=== PATIENT | female | born 1995 | race Caucasian/White ===

== ENCOUNTER 2021-09-23 14:20 | Inpatient (IN) | payer OTHER ==
[2021-09-23] MEDS ORDERED: PROMETHAZINE HCL 25 MG/1 ML VIAL IVPUSH ONE (16:18)
[2021-09-23] MEDS ORDERED: BUTORPHANOL TARTRATE 2 MG/ML VIAL IVPB ONE (16:18)
[2021-09-23] MEDS ORDERED: SODIUM PHOSPHATE/NA BIPHOS 133 ML ENEMA PR ONE (16:25)
[2021-09-23 16:26] VITALS: BMI 25.6
[2021-09-23] MEDS ORDERED: DINOPROSTONE 10 MG VAGINAL SUPPOSITORY VG ONE (16:26)
[2021-09-23] MEDS ORDERED: DEXTROSE 5%-LACTATED RINGERS 1,000 ML IV SCH (16:30)
[2021-09-23 17:17] LABS: BASO % 0.2 % (0-2.0); EOS % 0.1 % (0-4.5); HEMATOCRIT 37.5 % (32.4-45.2); HEMOGLOBIN 12.5 GM/dL (10.7-15.3); LYMPH % 14.4 % (8-40); MCH 30.9 pg (25.7-33.7); MCHC 33.4 g/dl (32.0-36.0); MEAN CELL VOLUME 92.4 fl (80-96); MEAN PLT VOLUME 11.3 fl (7.5-11.1); MONO % 6.3 % (3.8-10.2); PLATELET COUNT 133 10^3/uL (134-434); RBC 4.06 M/mm3 (3.60-5.2); RDW 15.7 % (11.6-15.6); WHITE BLOOD COUNT 12.3 K/mm3 (4.0-10.0)
[2021-09-23 17:21] LABS: INR 0.95 (0.83-1.09); PROTHROMBIN TIME (PATIENT) 10.9 SEC (9.7-13.0)
[2021-09-23 17:24] LABS: ACTIVATED PTT 25.9 SECONDS (25.2-36.5)
[2021-09-23 17:32] LABS: CALCIUM 8.9 mg/dL (8.5-10.1)
[2021-09-23 17:33] LABS: BLOOD UREA NITROGEN 5.8 mg/dL (7-18)
[2021-09-23 17:36] LABS: CREATININE 0.6 mg/dL (0.55-1.3)
[2021-09-23] MEDS ORDERED: PROMETHAZINE HCL 25 MG/1 ML VIAL ONE (19:18)
[2021-09-23] MEDS ORDERED: BUTORPHANOL TARTRATE 2 MG/ML VIAL ONE (19:18)
[2021-09-23] MEDS ORDERED: OXYTOCIN 20 UNITS in 0.9% NS 20 UNIT/1,000 ML INFUS.BAG IV ONE (20:57)
[2021-09-23] MEDS ORDERED: LIDOCAINE HCL 1% PRESERVATIVE FREE - 30ML VIAL ONE (20:57)
[2021-09-23] MEDS ORDERED: oxyCODONE HCL 5 MG TABLET ONE (22:34)
[2021-09-23] MEDS ORDERED: ACETAMINOPHEN 325 MG TABLET (FP) ONE (22:34)
[2021-09-23] MEDS ORDERED: METHYLERGONOVINE MALEATE 0.2 MG/1 ML AMP IM PRN (22:35)
[2021-09-23] MEDS ORDERED: WITCH HAZEL 50% (TUCKS) 40 PAD/JAR PAD TP PRN (22:35)
[2021-09-23] MEDS ORDERED: oxyCODONE HCL 5 MG TABLET PO PRN (22:35)
[2021-09-23] MEDS ORDERED: ACETAMINOPHEN 325 MG TABLET (FP) PO PRN (22:35)
[2021-09-23] MEDS ORDERED: BISACODYL 10 MG SUPP.RECT RC PRN (22:35)
[2021-09-23] MEDS ORDERED: IBUPROFEN 600 MG TABLET (FP) PO PRN (22:35)
[2021-09-23] MEDS ORDERED: BENZOCAINE 20% 57 GM BOTTLE TP PRN (22:35)
[2021-09-23] MEDS ORDERED: BENZOCAINE 28 GM HEMORRHOIDAL OINTMENT TP PRN (22:35)
[2021-09-23] MEDS ORDERED: OXYTOCIN 20 UNITS in 0.9% NS 20 UNIT/1,000 ML INFUS.BAG IV SCH (22:45)
[2021-09-24 07:43] LABS: BASO % 0.3 % (0-2.0); EOS % 0.1 % (0-4.5); HEMATOCRIT 34.7 % (32.4-45.2); HEMOGLOBIN 11.6 GM/dL (10.7-15.3); LYMPH % 11.8 % (8-40); MCH 30.9 pg (25.7-33.7); MCHC 33.4 g/dl (32.0-36.0); MEAN CELL VOLUME 92.6 fl (80-96); MEAN PLT VOLUME 10.6 fl (7.5-11.1); MONO % 8.2 % (3.8-10.2); NEUT % 79.6 % (42.8-82.8); PLATELET COUNT 119 10^3/uL (134-434); RBC 3.75 M/mm3 (3.60-5.2); WHITE BLOOD COUNT 18.8 K/mm3 (4.0-10.0)
[2021-09-24] MEDS: FERROUS SO4 325 MG TABLET (FP) PO SCH ×2 (08:51→17:04)
[2021-09-24] MEDS: PRENATAL VITAMINS W/ FOLIC ACID TABLET (FP) PO SCH ×2 (08:52→09:33)
[2021-09-24] MEDS ORDERED: SENNOSIDES/DOCUSATE COMBO (SENNA PLUS) TABLET (UD) PO PRN (22:00)
[2021-09-25] MEDS: FERROUS SO4 325 MG TABLET (FP) PO SCH (09:31)
[2021-09-25] MEDS: PRENATAL VITAMINS W/ FOLIC ACID TABLET (FP) PO SCH (09:31)
[2021-09-25 09:35] VITALS: BP 101/60; PULSE 78; TEMP 97.5
== END 2021-09-25 13:49 | disposition home or self-care (01) | DRG 560 ==
LOC: JLDR 14:20 → J3W 09-24 00:50
PROVIDERS: ADMIT Obstetrics & Gynecology; ATTEND Obstetrics & Gynecology
PROC: 10E0XZZ Delivery of Products of Conception, External Approach (ICD-10-PCS; principal; 2021-09-23)
PROC: 0W8NXZZ Division of Female Perineum, External Approach (ICD-10-PCS; 2021-09-23)
PROC: 0HQ9XZZ Repair Perineum Skin, External Approach (ICD-10-PCS; 2021-09-23)
PROC: 3E0P7VZ Introduction of Hormone into Female Reproductive, Via Natural or Artificial Opening (ICD-10-PCS; 2021-09-23)
DX: O48.0 Post-term pregnancy (principal); Z3A.40 40 weeks gestation of pregnancy; O70.0 First degree perineal laceration during delivery; Z37.0 Single live birth
CPT/HCPCS: 36415; 59409; 80048; 85025; 85610; 85730; 86780; 86850; 86900; 86901; C9803-CS; U0003; U0005

== ENCOUNTER 2024-10-24 06:24 | Day surgery (SDC) | payer OTHER ==
[2024-10-18 17:06] VITALS: BMI 23.8
[2024-10-24] MEDS ORDERED: MIDAZOLAM HCL 2 MG/2 ML SINGLE DOSE VIAL ONE (08:43)
[2024-10-24] MEDS ORDERED: PROPOFOL 20 ML ONE ×2 (08:43→11:36)
[2024-10-24] MEDS ORDERED: LIDOCAINE HCL/PF 2% SDV 5ML VIAL ONE (08:43)
[2024-10-24] MEDS ORDERED: ACETAMINOPHEN INJECTION 100 ML ONE (08:59)
[2024-10-24] MEDS ORDERED: ROPIVACAINE HCL/PF 100 MG/20 ML VIAL ONE (08:59)
[2024-10-24] MEDS ORDERED: PROMETHAZINE HCL 25 MG/1 ML VIAL IVPB PRN (09:13)
[2024-10-24] MEDS ORDERED: LACTATED RINGERS SOLUTION 1,000 ML IV SCH (09:15)
[2024-10-24] MEDS ORDERED: DEXAMETHASONE SOD PHOSPHATE 4 MG/1 ML VIAL ONE (10:10)
[2024-10-24] MEDS ORDERED: ONDANSETRON 4 MG/2 ML VIAL ONE ×2 (11:36→12:41)
[2024-10-24] MEDS ORDERED: KETOROLAC TROMETHAMINE 30 MG/1 ML VIAL ONE (11:36)
[2024-10-24] MEDS ORDERED: FENTANYL CITRATE/PF 50 MCG/ML VIAL ONE ×3 (12:41→13:00)
[2024-10-24] MEDS: ONDANSETRON 4 MG/2 ML VIAL IVPUSH PRN (12:47)
[2024-10-24 18:57] VITALS: RESP 19
[2024-10-24 19:12] VITALS: BP 118/70; PULSE 67; TEMP 97.1
== END 2024-10-24 15:27 | disposition home or self-care (01) ==
LOC: FASU 06:24
PROVIDERS: ATTEND Orthopaedic Surgery Sports Medicine
PROC: 0QH Lower Bones, Insertion (ICD-10-PCS; principal; 2024-10-24 10:42)
DX: S82.115A Nondisplaced fracture of left tibial spine, initial encounter for closed fracture (principal); X58.XXXA Exposure to other specified factors, initial encounter; Y93.9 Activity, unspecified; Y92.9 Unspecified place or not applicable; Y99.9 Unspecified external cause status
CPT/HCPCS: 81025; 94760; C1713; C1769